=== PATIENT | female | born 1990 | race Caucasian/White ===

== ENCOUNTER 2016-10-02 20:58 | Emergency (ER) | payer OTHER ==
[2016-10-02] MEDS ORDERED: NACL 0.9% 1000 ML 1,000 ML IV ONE ×2 (21:43→23:35)
--- NOTE | 2016-10-02 21:45 | Emergency Department Report ---
HPI - General Chief Complaint: Dizziness Time Seen by Provider: 10/02/16 21:42 - HPI HPI: This is a 26-year-old female presents to the emergency department from home with complaint of ingesting what she thought was a pot brownie and then becoming ill. The patient says she feels extremely dizzy, says that she "does not feel like myself", feels jittery. The patient has no previous experience with any illicit drug use and says that she does not even use a backup or alcohol. The brownie was made by a friend of hers and dropped off at her house. The patient's mother is bedside and says that she spoke with other people who took the same drug brownie and they all seemed to be doing fine. She does not have any past medical history but also does not follow with any primary care physician. She did not take anything else or was not given anything else for her symptoms prior to presentation. ED Past Medical Hx - Past Medical History Previous Medical History?: No - Surgical History Past Surgical History?: Yes Additional Surgical History: gallbladder - Social History Smoking Status: Never Smoker Substance Use Type: None - Medications Home Medications: Home Medications Medication Instructions Recorded Confirmed Last Taken Type No Known Home Medications [No 10/02/16 10/02/16 Unknown History Reported Home Medications] ED Review of Systems ROS: Stated complaint: POSS DRUG INGESTION Other details as noted in HPI Comment: All other systems reviewed and negative Constitutional: denies: chills, fever Eyes: denies: eye pain, eye discharge, vision change ENT: denies: ear pain, throat pain Respiratory: denies: cough, shortness of breath, wheezing Cardiovascular: palpitations. denies: chest pain Gastrointestinal: denies: abdominal pain, nausea, diarrhea Genitourinary: denies: urgency, dysuria, discharge Musculoskeletal: denies: back pain, joint swelling, arthralgia Skin: denies: rash, lesions Neurological: other (dizziness). denies: headache, numbness Psychiatric: denies: homicidal thoughts, suicidal thoughts Physical Exam - Physical Exam Vital Signs: Vital Signs 10/02/16 21:17 Temperature 98 F Pulse Rate 123 H Respiratory 16 Rate Blood Pressure 121/66 O2 Sat by Pulse 96 Oximetry Physical Exam: GENERAL: The patient is well-developed well-nourished. HEENT: Normocephalic. Atraumatic. Extraocular motions are intact. Patient has moist mucous membranes. Pupils equal reactive to light bilaterally. There is some mild fatigable horizontal nystagmus. NECK: Supple. Trachea is midline. CHEST/LUNGS: Clear to auscultation. There is no respiratory distress noted. HEART/CARDIOVASCULAR: Regular. There is mild to moderate tachycardia. There is no gallop rub or murmur. ABDOMEN: Abdomen is soft, nontender. Patient has normal bowel sounds. There is no abdominal distention. SKIN: Skin is warm and dry. NEURO: The patient is awake, alert, and oriented. The patient is cooperative. The patient has no focal neurologic deficits. The patient has normal speech. Cranial nerves II through XII grossly intact. MUSCULOSKELETAL: There is no tenderness or deformity. There is no limitation range of motion. There is no evidence of acute injury. ED Course Vital Signs 10/02/16 21:17 Temperature 98 F Pulse Rate 123 H Respiratory 16 Rate Blood Pressure 121/66 O2 Sat by Pulse 96 Oximetry ED Medical Decision Making - Lab Data Result diagrams: 10/02/16 21:40 10/02/16 21:40 - EKG Data -: EKG Interpreted by Mo EKG shows normal: sinus rhythm, axis, intervals, QRS complexes, ST-T waves ( nonspecific ST-T changes) Rate: tachycardia (111 bpm) - EKG Data When compared to previous EKG there are: previous EKG unavailable Interpretation: nonspecific ST-T wave fab (with sinus tachycardia) - Medical Decision Making 26-year-old female presents the emergency department about 2.5-3 hours after eating a brownie that was allegedly baked with marijuana. The patient started feeling dizzy and some nonspecific feelings that were abnormal to her. It is possible that it was not marijuana in there and that it is some other type of drug. It is also possible that the patient is not use to the feelings of marijuana intoxication as she does not allegedly have any previous history of any drug ingestions, tobacco use or any significant alcohol use. Nonetheless the patient does not have any focal, motor or sensory deficits in her cranial nerves are intact. She does have some tachycardia but the rest of the vitals are stable including being afebrile. She was given IV fluid resuscitation of 2 L. Labs are mostly unremarkable. There is a very mild leukocytosis but it is close to the high range of normal. Urine drug screen positive for marijuana. Otherwise the rest the labs are unremarkable. She was reevaluated multiple times over multiple hours and says she is feeling much better. She appears safe for discharge home. She'll be given multiple referrals for primary care. She will return to the ER with any worsening of her symptoms or any acute distress. - Differential Diagnosis hypothyroidism, hyperglycemia, drug ingestion Critical Care Time: No Critical care attestation.: If time is entered above; I have spent that time in minutes in the direct care of this critically ill patient, excluding procedure time. ED Disposition Clinical Impression: Dizziness Drug ingestion Qualifiers: Encounter type: initial encounter Injury intent: undetermined intent Qualified Code(s): T50.904A - Poisoning by unspecified drugs, medicaments and biological substances, undetermined, initial encounter Disposition: TO HOME OR SELFCARE Is pt being admited?: No Condition: Stable Instructions: Lightheadedness (ED), Dizziness (ED) Additional Instructions: Please follow-up with a primary care physician in the next few days. Return to the emergency department with any worsening of your symptoms or any acute distress. Referrals: PRIMARY MD JOAN [Primary Care Provider] - 3-5 Days WILBERT TREVINO MD [Staff Physician] - 3-5 Days GIANNA ROGERS MD [Staff Physician] - 3-5 Days DEBORAH HOOKER MD [Staff Physician] - 3-5 Days Time of Disposition: 00:50
[2016-10-02 21:55] LABS: Basophils % (Auto) 0.1 % (0.0-1.8); Eosinophils % (Auto) 0.3 % (0.0-4.3); Hematocrit 38.8 % (30.3-42.9); Hemoglobin 13.1 gm/dl (10.1-14.3); Mean Corpuscular HGB Conc 34 % (30-34); Mean Corpuscular Hemoglobin 29 pg (28-32); Mean Corpuscular Volume 86 fl (79-97); Platelet Count 262 K/mm3 (140-440); Red Blood Count 4.51 M/mm3 (3.65-5.03); Red Cell Distribution Width 12.7 % (13.2-15.2); White Blood Count 12.5 K/mm3 (4.5-11.0)
[2016-10-02 22:07] LABS: Urine Drugs of Abuse Note Disclamer
[2016-10-02 22:13] LABS: Bilirubin,Urine NEG (Negative); Blood,Urine SM (Negative); Ketones,Urine TR mg/dL (Negative); Leukocyte Esterase,Urine NEG (Negative); Mucus,Urine FEW /HPF; Nitrite,Urine NEG (Negative); Protein,Urine <15 mg/dL mg/dL (Negative); Urobilinogen,Urine < 2.0 mg/dL (<2.0)
[2016-10-02 22:47] VITALS: BP 123/63
[2016-10-02 23:27] LABS: Anion Gap 23 mmol/L; BUN/Creatinine Ratio 21.25; Blood Urea Nitrogen 17 mg/dL (7-17); Calcium 9.4 mg/dL (8.4-10.2); Carbon Dioxide 22 mmol/L (22-30); Chloride 99.4 mmol/L (98-107); Glucose 106 mg/dL (65-100); Sodium 140 mmol/L (137-145)
== END 2016-10-03 01:03 | disposition home or self-care (01) ==
LOC: EDBD → ED 20:58
DX: T50.904A Poisoning by unspecified drugs, medicaments and biological substances, undetermined, initial encounter (principal); R42 Dizziness and giddiness; Y92.9 Unspecified place or not applicable
CPT/HCPCS: 36415; 80048; 80307; 81001; 81025; 82550; 84443; 84484; 85025; 87086; 93005; 93010; 96360; 96361; 99284; G0480; J7030; 80320